=== PATIENT | male | born 1975 | race Hispanic/Latino ===

== ENCOUNTER 2025-08-18 20:15 | Emergency (ER) | payer SELFPAY ==
[~2025-08-18] VITALS: Ht 175.3 cm; Wt 106.6 kg
[2025-08-18 21:25] VITALS: BP 154/72; PULSE 80; RESP 20; TEMP 98.5; O2SAT 99
[2025-08-18] MEDS ORDERED: KETO10TA2 PO (21:32)
--- NOTE | 2025-08-18 21:33 | ERN ---
General Chief Complaint: Knee Injury/Swelling Stated Complaint: C/O PAIN TO KNEES AFTER GETTING OFF TRUCK Time Seen by MD: 20:19 Time Seen by Midlevel: 20:19 Source: patient History of Present Illness Initial Comments 50-year-old male the emergency department with a right knee pain after he got of the truck. He reports hearing a popping sound. Allergies: Coded Allergies: No Known Allergies (Unverified Allergy, Unknown, 08/18/25) Home Meds Active Scripts Ketorolac Tromethamine (Ketorolac Tromethamine) 10 Mg Tablet, 1 TAB PO BID for pain for 5 Days, #10 TAB 0 Refills Prov:WICHO NYE PAC 08/18/25 Past Medical History Past Medical History: Other Medical History Other: SEASONAL ALLERGIES Past Surgical History: None ROS Dictation CONSTITUTIONAL: Negative except for HPI HEAD/FACE: Negative except for HPI EENT: Negative except for HPI RESPIRATORY: Negative except for HPI GASTROINTESTINAL/ABDOMINAL: Negative except for HPI GENITOURINARY: Negative except for HPI MUSCULOSKELETAL: Negative except for HPI INTEGUMENTARY: Negative except for HPI NEUROLOGICAL/PSYCH: Negative except for HPI HEMATOLOGIC/LYMPHATIC: Negative except for HPI All Systems Negative, Except as noted above. 13 point review of systems assessed and all negative except for above. Physical Exam Physical Exam Dictation Vital Signs reviewed General Appearance: Alert, oriented x 3, no acute distress, well developed, nourished. Head and Face: non-traumatic. Eyes: PERRL, pink conjunctivas, eyelid no trauma, anterior chamber with arcus senilis. Ears: Pinnas intact and no signs of trauma or erythema ear canals clear and no discharge TM no erythema Nose: No discharge, no bleeding. Oropharynx: Mouth normal, tongue pink, pharynx clear,no erythema, tonsils no exudates, no abscesses noted, mucous membrane moist Neck: Supple, non-tender, no thyromegaly, no masses, no JVD, no bruits Breast:Deferred Chest:No tenderness, no crepitus, no paradoxical movement, no retractions Lungs:Clear, well-ventilated, symmetric, no rales, no wheezing, no rhonchi, no stridor, good breath sounds bilaterally Heart: Regular rate, regular rhythm, no murmur, no gallops Vascular: no peripheral edema, Abdomen: Soft, positive bowel sounds, nondistended, no guarding, nontender, no rebound, no masses no hepatomegaly, no splenomegaly, no Vieira's sign, no hernias. Rectal: Deferred Genital: Deferred Neurological: Normal speech, motor function intact, sensory function intact Musculoskeletal: Neck nontender, full range of motion, back nontender, full range of motion, Extremities: nontender, full range of motion Skin: Color pink, dry, no turgor, no rash, no lacerations, no abrasions, no contusions. Lymphatic: Deferred MDM MDM: Differential diagnosis: Fracture, contusion, sprain There are no social concerns with this patient. Prescription drug management Prescriptions will include: Toradol Medical management and examination interpretation discussions were had by me with other qualified healthcare professionals as indicated for the patient's care. ED Course Orders Procedure Category Date Status Time Knee 3vws Lt RAD 08/18/25 Taken 20:26 Knee 3vws Rt RAD 08/18/25 Taken 20:26 Place Knee Imobilizer CPOE 08/18/25 Transmitted To: (Er) 20:26 Ketorolac PHA 08/18/25 Complete Tromethamine 30mg/Ml 20:30 Current Medications Medications (Trade) Dose Ordered Sig/Lew Route PRN Reason Start Time Stop Time Status Last Admin Dose Admin Ketorolac Tromethamine (toRADol) 30 mg ONCE ONCE IM 08/18/25 20:30 08/18/25 20:31 DC Vital Signs Date Time Temp Pulse Resp B/P (MAP) Pulse Ox O2 Delivery O2 Flow Rate FiO2 08/18/25 21:25 98.4 80 20 154/72 99 Room Air* 0 21 08/18/25 20:19 98.4 82 20 166/77 99 Room Air DX & DISP Disposition: Discharge Departure Impression: Primary Impression: Right knee sprain Condition: Stable Scripts Ketorolac Tromethamine (Ketorolac Tromethamine) 10 Mg Tablet 1 TAB PO BID for pain for 5 Days, #10 TAB 0 Refills Prov: WICHO NYE PAC 08/18/25 Referrals: SELF,REFERRAL (PCP) PETE CARTAGENA MD I have reviewed the case, and I agree with, Diagnosis and Plan I performed the substantive portion of the visit. I have reviewed and personally made and approve the management plan that is documented in the note by myself or the MANDY. I acknowledge for responsibility for the patient's management plan. WICHO NYE PAC Aug 18, 2025 21:32
--- NOTE | 2025-08-18 21:39 | NUR ---
RT KNEE IMMOBILIZER PLACED, PT TOLERATED WELL
--- NOTE | 2025-08-18 21:57 | HMCIMG ---
EXAM: CR Left Knee, 3 View. CLINICAL HISTORY: r/o fx COMPARISON: None provided. FINDINGS: Medial compartment predominant mild to moderate tricompartmental left knee joint osteoarthritis. Small suprapatellar knee joint effusion. IMPRESSION: 1. No acute findings. 2. Mild to moderate tricompartmental left knee osteoarthritis, predominantly in the medial compartment, with small suprapatellar knee joint effusion. /[place]
--- NOTE | 2025-08-18 21:58 | HMCIMG ---
EXAM: CR right Knee, 3 View. CLINICAL HISTORY: r/o fx COMPARISON: None provided. FINDINGS: BONES: No acute fracture or aggressive appearing osseous lesion. JOINTS: The joint spaces show no significant degenerative disease. There is no joint effusion appreciated. SOFT TISSUES: The soft tissues are unremarkable. IMPRESSION: No acute osseous pathology evident. /[place]
--- NOTE | 2025-08-18 22:15 | NUR ---
CRUTCHES GIVEN TO PT AFTER EDUCATION
== END 2025-08-18 22:17 | disposition home or self-care (01) ==
LOC: EDH 20:15
DX: S83.91XA Sprain of unspecified site of right knee, initial encounter (principal); Z79.899 Other long term (current) drug therapy; X58.XXXA Exposure to other specified factors, initial encounter; Y93.89 Activity, other specified; Y92.89 Other specified places as the place of occurrence of the external cause; Y99.8 Other external cause status
CPT/HCPCS: 99283; 29505; 73562 ×2; 96372; J1885